=== PATIENT | female | born 2000 | race African-American/Black ===

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

== ENCOUNTER 2021-01-13 17:12 | Emergency (ER) | payer SELFPAY | END 2021-01-13 17:45 | disposition home or self-care (01) | LOC: MADERS 17:12 | DX: M79.652 Pain in left thigh (principal); F17.210 Nicotine dependence, cigarettes, uncomplicated; W19.XXXA Unspecified fall, initial encounter | CPT/HCPCS: 99281 ==